=== PATIENT | male | born 1995 | race African-American/Black ===

== ENCOUNTER 2024-10-07 13:40 | Emergency (ER) | payer SELFPAY ==
[~2024-10-07] VITALS: Ht 180.3 cm; Wt 81.8 kg
[2024-10-07 15:59] VITALS: BP 120/82; PULSE 78; RESP 18; TEMP 98.5; O2SAT 100
[2024-10-07 16:06] LABS: Urine Bacteria None Seen /hpf (None Seen)
[2024-10-07 16:27] LABS: Urine Blood 2+ /uL (Negative); Urine Clarity Clear (Clear); Urine Color Light-Yellow (Yellow); Urine Mucus FEW (None Seen); Urine Protein, UAD Negative (Negative); Urine Specific Gravity 1.017 (1.001-1.035); Urine Squamous Epithelial Cell None Seen /hpf (<5); Urine Urobilinogen Normal (Negative); Urine WBC 6 /HPF (0-3)
[2024-10-07] MEDS ORDERED: DOXY-286 PO (17:01)
--- NOTE | 2024-10-07 17:01 | ED.PDOC ---
General HPI Comments 29-year-old male with no pertinent MHx presents with a chief complaint of dysuria and pruritus Onto started three days ago Concerned about possible STI after new sex partner Denies fevers chills night sweats Denies pelvic pain Denies nausea vomiting diarrhea Denies history of UTI Denies blood in the urine or semen Denies recent instruments/toys and urethra Denies current tobacco use Denies family history of prostate issues Chief Complaint: Urinary Time Seen by MD: 14:13 Reviewed notes: Nurses Notes Allergies: Uncoded Allergies: COLOR COATED PILLS (Allergy, Unknown, 10/07/24) Home Meds Active Scripts Doxycycline Hyclate (DOXYCYCLINE HYCLATE) 100 Mg Tab, 1 TAB PO BID for 7 Days, #14 TAB 0 Refills Prov:ALANNA LU Jenna [employer] DESIGN ENGINEER 10/07/24 Information Source: Patient Mode of Arrival: Ambulatory All Other Systems: Reviewed and Negative (per hpi) Physical Exam General Appearance: No Apparent Distress, Normal HEENT: Normal ENT Inspection, Pharynx Normal, TMs Normal Neck: Full Range of Motion, Non-Tender, Normal, Normal Inspection Respiratory: Chest Non-Tender, Lungs Clear, No Accessory Muscle Use, No Respiratory Distress, Normal Breath Sounds Cardiovascular: No Edema, No JVD, No Murmur, No Gallop, Normal Peripheral Pulses, Regular Rate/Rhythm Breast Exam: Deferred Gastrointestinal: No Organomegaly, Non Tender, No Pulsatile Mass, Normal Bowel Sounds, Soft Genitalia: Deferred (pt declined) Pelvic: Deferred Rectal: Deferred Extremities: No calf tenderness, Normal capillary refill, Normal inspection, Normal range of motion, Non-tender, No pedal edema Musculoskeletal : Apperance: Normal Neurologic: Alert, evp operations II-XII nml as Tested, No Motor Deficits, Normal Affect, Normal Mood, No Sensory Deficits Cerebellar Function: Normal Reflexes: Normal Skin: Dry, Normal Color, Warm Lymphatic: No Adenopathy Was a procedure done? Was a procedure done?: No Differential Diagnosis Kidney stone (Female): Other X-Ray, Labs, Meds, VS Vital Signs Date Time Temp Pulse Resp B/P (MAP) Pulse Ox O2 Delivery O2 Flow Rate FiO2 10/07/24 15:59 98.5 78 18 120/82 (95) 100 98.5 10/07/24 15:59 78 18 100 Room Air 10/07/24 14:06 98.4 75 13 112/59 (25) 100 98.4 Lab Test 10/07/24 16:05 Range/Units Urine Color Light-yellow Yellow Urine Clarity Clear Clear Urine pH 6.0 5.0-9.0 Urine Specific [place] 1.017 1.001-1.035 Urine Protein Negative Negative Urine Ketones Negative Negative Urine Blood 2+ H Negative /uL Urine Nitrite Negative Negative Urine Bilirubin Negative Negative Urine Urobilinogen Normal Negative mg/dL Urine Leukocyte Esterase 2+ Negative /uL Urine RBC 36 0 - 3 /hpf Urine Microscopic WBC 6 H 0-3 /HPF Urine Squamous Epithelial Cells None seen <5 /hpf Urine Bacteria None seen None Seen /hpf Urine Mucus Few None Seen Urine Glucose Normal Normal mg/dL Chlamydia trachomatis (LEISA) Pending Neisseria gonorrhoeae (LEISA) Pending Current Medications Medications (Trade) Dose Ordered Sig/Eliel Route Start Time Stop Time Status Last Admin Ceftriaxone Sodium (Rocephin) 1,000 mg ONCE ONCE IM 10/07/24 17:00 10/07/24 17:01 DC 10/07/24 17:05 X-Ray, Labs, Meds, VS Comment History and physical exam consistent with urethritis Per CDC guidelines we will treat with Doxy 100 mg twice daily x7 days Notify sex partners and refer them to get tested Advise abstinence from sex x7 days after course completed External notes reviewed. Test results and diagnostic imaging interpreted. All diagnostic findings, discharge care, education and instructions provided Follow-up with PCP in 2 to 3 days Patient verbalized understanding and agreed to treatment plan Vital signs stable, afebrile, no acute distress noted Patient ambulatory with strong steady gait Advised to return precautions for any new or worsening symptoms, return to ER immediately for re-evaluation Patient is aware that the purpose of this visit was for an acute medical emergency requiring emergent stabilization. Chronic conditions, including malignancies have not been ruled out. Patient is instructed to follow up with PCP as directed and discharge instructions for continued care and workup. If unable to arrange follow-up, patient is to return to the emergency department for reassessment. Patient (parent or legal guardian if applicable) was given verbal and written discharge instructions and acknowledges understanding. Time of 1ST Reevaluation: 17:00 Reevaluation 1ST: Improved Patient Education/Counseling: Diagnosis, Treatment Family Education/Counseling: Diagnosis, Treatment Departure 1 Departure Time of Disposition: 17:01 Impression: Primary Impression: Urethritis Disposition: HOME / SELF CARE / HOMELESS Condition: Stable e-Prescriptions Doxycycline Hyclate (DOXYCYCLINE HYCLATE) 100 Mg Tab 1 TAB PO BID for 7 Days, #14 TAB 0 Refills Prov: ALANNA LU NP 10/07/24 Critical Care Note Critical Care Time?: No Stability Stability form required: No Heart Score Heart Score: Heart Score Response (Comments) Value History N/A 0 EKG N/A 0 Age N/A 0 Risk Factors N/A 0 Troponin N/A 0 Total 0 ALANNA LU NP Oct 07, 2024 17:01
[2024-10-07] MEDS: cefTRIAXone SOD 1,000 MG VL IM ONE (17:05)
[2024-10-09 04:07] LABS: Chlamydia Trachomatis, NAA Negative (Negative); Neisseria gonorrhoeae, NAA Negative (Negative)
== END 2024-10-07 17:10 | disposition home or self-care (01) ==
LOC: ER 13:40
DX: N34.2 Other urethritis (principal); L29.9 Pruritus, unspecified
CPT/HCPCS: 81001; 87491; 87591; 96372; 99283; J0696

== ENCOUNTER 2025-04-28 12:35 | Emergency (ER) | payer SELFPAY ==
[~2025-04-28] VITALS: Ht 180.3 cm; Wt 92.2 kg
[~2025-04-28 12:35] MED LIST: DOXY-286 PO
--- NOTE | 2025-04-28 13:29 | ED.PDOC ---
General HPI Comments 30-year-old male presents to the ER with pelvic pressure. Patient reports on having pressure-like pain in the pelvic area. He reports his partner tested + for BV and concerned infection may have been transmitted No other complaint or concerns Denies fevers chills night sweats Denies pelvic pain Denies nausea vomiting diarrhea Denies dysuria urgency frequency Denies history of UTI Denies blood in the urine or semen Denies recent instruments/toys and urethra Denies current tobacco use Denies family history of prostate issues Chief Complaint: Urinary Time Seen by MD: 13:25 Reviewed notes: Nurses Notes, Medications, Allergies Allergies: Uncoded Allergies: COLOR COATED PILLS (Allergy, Unknown, 10/07/24) Home Meds Active Scripts Doxycycline Hyclate (DOXYCYCLINE HYCLATE) 100 Mg Tab, 1 TAB PO BID for 7 Days, #14 TAB 0 Refills Prov:ALANNA LU Jenna POZO 10/07/24 Information Source: Patient Mode of Arrival: Ambulatory Severity: Moderate Timing: Came on: Suddenly Duration: Since onset Prehospital treatment: None Onset: Spontaneous Symptoms: None History of: UTI Location: Suprapubic Penile discharge: None Modifying factors: None associated signs and symptoms: Abdominal Pain (Pelvic pain) Past Medical History PAST MEDICAL HISTORY: UTI'S Surgical History: Denies all surgeries Family History Family History: Reviewed,noncontributory to illness, Unknown Social History Smoker: Non-Smoker Alcohol: Denies ETOH Use Drugs: Denies Drug Use Lives In: Home Constitutional: denies: chills, diaphoresis, fatigue, fever, malaise, sweats, weakness, others EENTM: denies: blurred vision, double vision, ear bleeding, ear discharge, ear drainage, ear pain, ear ringing, eye pain, eye redness, hearing loss, mouth pain, mouth swelling, nasal discharge, nose bleeding, nose congestion, nose pain, photophobia, tearing, throat pain, throat swelling, voice changes, others Respiratory: denies: cough, hemoptysis, orthopnea, SOB at rest, shortness of breath, SOB with excertion, stridor, wheezing, others Cardiovascular: denies: chest pain, dizzy spells, diaphoresis, Dyspnea on exertion, edema, irregular heart beat, left arm pain, lightheadedness, palpitations, PND, syncope, others Gastrointestinal: denies: abdomen distended, abdominal pain, blood streaked bowels, constipated, diarrhea, dysphagia, difficulty swallowing, hematemesis, melena, nausea, poor appetite, poor fluid intake, rectal bleeding, rectal pain, vomiting, others Genitourinary: reports: others (Pelvic pain); denies: burning, dysuria, flank pain, frequency, hematuria, incontinence, penile discharge, penile sore, pain, testicle pain, testicle swelling, urgency Neurological: denies: dizziness, fainting, headache, left sided numbness, left sided weakness, numbness, paresthesia, pre-existing deficit, right sided nu mbness, right sided weakness, seizure, speech problems, tingling, tremors, weakness, others Musculoskeletal: denies: back pain, gout, joint pain, joint swelling, muscle pain, muscle stiffness, neck pain, others Integumetry: denies: bruises, change in color, change in hair/nails, dryness, laceration, lesions, lumps, rash, wounds, others Allergic/Immunocompromised: denies: Difficulty Healing, Frequent Infections, Hives, Itching, others Hematologic/Lymphatic: denies: anemia, blood clots, easy bleeding, easy bruising, swollen glands, others Endocrine: denies: excessive hunger, excessive sweating, excessive thirst, excessive urination, flushing, intolerance to cold, intolerance to heat, unexplained weight gain, unexplained weight loss, others Psychiatric: denies: anxiety, bipolar disorder, depression, hopeless, panic disorder, schizophrenia, sleepless, suicidal, others All Other Systems: Reviewed and Negative Physical Exam General Appearance: No Apparent Distress, Normal HEENT: Normal ENT Inspection, Pharynx Normal, TMs Normal Neck: Full Range of Motion, Non-Tender, Normal, Normal Inspection Respiratory: Chest Non-Tender, Lungs Clear, No Accessory Muscle Use, No Respiratory Distress, Normal Breath Sounds Cardiovascular: No Edema, No JVD, No Murmur, No Gallop, Normal Peripheral Pulses, Regular Rate/Rhythm Breast Exam: Deferred Gastrointestinal: No Organomegaly, Non Tender, No Pulsatile Mass, Normal Bowel Sounds, Soft Genitalia: Deferred Pelvic: Deferred Rectal: Deferred Extremities: No calf tenderness, Normal capillary refill, Normal inspection, Normal range of motion, Non-tender, No pedal edema Musculoskeletal : Apperance: Normal Neurologic: Alert, manager utilization II-XII nml as Tested, No Motor Deficits, Normal Affect, Normal Mood, No Sensory Deficits Cerebellar Function: Normal Reflexes: Normal Skin: Dry, Normal Color, Warm Lymphatic: No Adenopathy Was a procedure done? Was a procedure done?: No Differential Diagnosis Kidney stone (Female): N/A Kidney stone (Male): N/A Penile/Scrotal: N/A Urinary Problem (Male): UTI Urinary Problem (Female): N/A X-Ray, Labs, Meds, VS Vital Signs Date Time Temp Pulse Resp B/P (MAP) Pulse Ox O2 Delivery O2 Flow Rate FiO2 04/28/25 12:37 98.8 75 16 117/72 100 98.8 Lab Test 04/28/25 13:48 Range/Units Urine Color Light-yellow Yellow Urine Clarity Clear Clear Urine pH 6.0 5.0-9.0 Urine Specific [place] 1.020 1.001-1.035 Urine Protein 1+ H Negative Urine Ketones Negative Negative Urine Blood 1+ H Negative /uL Urine Nitrite Negative Negative Urine Bilirubin Negative Negative Urine Urobilinogen Normal Negative mg/dL Urine Leukocyte Esterase Negative Negative /uL Urine RBC 22 0 - 3 /hpf Urine Microscopic WBC 4 H 0-3 /HPF Urine Squamous Epithelial Cells None seen <5 /hpf Urine Bacteria None seen None Seen /hpf Urine Glucose Normal Normal mg/dL X-Ray, Labs, Meds, VS Comment 30-year-old male presents to the ER with a urinary symptoms. Patient arrives alert and oriented, ABC's intact, afebrile, vital signs stable, saturating well in room air Empiric Treatment On reevaluation, patient had symptomatic improvement. Patient is stable for discharge at this time. External notes reviewed. Test results and diagnostic imaging interpreted. All diagnostic findings, discharge care, education and instructions provided Follow-up with PCP in 2 to 3 days Patient verbalized understanding and agreed to treatment plan Vital signs stable, afebrile, no acute distress noted Patient ambulatory with strong steady gait Advised to return precautions for any new or worsening symptoms, return to ER immediately for re-evaluation Patient is aware that the purpose of this visit was for an acute medical emergency requiring emergent stabilization. Chronic conditions, including malignancies have not been ruled out. Patient is instructed to follow up with PCP as directed and discharge instructions for continued care and workup. If unable to arrange follow-up, patient is to return to the emergency department for reassessment. Patient (parent or legal guardian if applicable) was given verbal and written discharge instructions and acknowledges understanding. Additional MDM Review of External, Non-ED records: External records reviewed. Discussion with independent historian (EMS, family) history obtained from the patient/parents (if applicable) at bedside Chronic conditions affecting care: None Social determinants of health affecting care: None Consideration of admission (observation or admission): I considered escalation of care to admission for this patient, however given the reassuring workup, the patient is safe for outpatient management. Discussion with the Radiology: No Tests considered but not performed: Prescription medication considered but not given: 12 lead EKG interpretation: Time of 1ST Reevaluation: 13:55 Reevaluation 1ST: Improved Patient Education/Counseling: Diagnosis, Treatment, Prognosis Family Education/Counseling: No Family Present SEPSIS Sepsis Screen Date sepsis recognized/suspect: Apr 28, 2025 Time Sepsis recognized/suspect: 1239 Recent Procedure: No On Antibiotic Therapy: No Respiratory Rate >20: No Heart Rate >90: No Temp<36 C (96.8 F) or >38.3 C: No SBP <90 or MAP <65 mmHG: No New Acute Mental Status Change: No Is the patient on CPAP, BIPAP,: No Physician Orders Chlamydia/Gc Amplification (04/28/25 14:12) Vital Signs Date Time Temp Pulse Resp B/P (MAP) Pulse Ox O2 Delivery O2 Flow Rate FiO2 04/28/25 12:37 98.8 75 16 117/72 100 98.8 Departure 1 Departure Time of Disposition: 14:15 Impression: Primary Impression: Pelvic pain Disposition: 01 HOME / SELF CARE / HOMELESS Condition: Fair e-Prescriptions Metronidazole (Metronidazole) 500 Mg Tab 500 MG PO BID for 7 Days, #14 TAB 0 Refills Prov: ALANNA LU NP 04/28/25 Critical Care Note Critical Care Time?: No Stability Stability form required: No Heart Score Heart Score: Heart Score Response (Comments) Value History N/A 0 EKG N/A 0 Age N/A 0 Risk Factors N/A 0 Troponin N/A 0 Total 0 I personally scribed for ALANNA LU NP ([email or web address]) on 04/28/25 at 13:29. Electronically submitted by Sanjeev Hawkins ([email or web address]). ALANNA LU NP Apr 28, 2025 13:29
[2025-04-28 14:08] LABS: Urine Protein, UAD 1+ (Negative)
[2025-04-28] MEDS ORDERED: MET500T PO (14:16)
[2025-04-28 14:31] VITALS: BP 117/72; PULSE 75; RESP 16; TEMP 98.8; O2SAT 100
[2025-04-30 06:07] LABS: Chlamydia Trachomatis, NAA Negative (Negative); Neisseria gonorrhoeae, NAA Negative (Negative)
== END 2025-04-28 14:32 | disposition home or self-care (01) ==
LOC: ER 12:35
DX: R10.20 Pelvic and perineal pain unspecified side (principal); Z79.899 Other long term (current) drug therapy
CPT/HCPCS: 81001